=== PATIENT | female | born 1970 | race African-American/Black ===

== ENCOUNTER 2017-05-19 14:59 | Emergency (ER) | payer OTHER ==
[~2017-05-19] VITALS: Ht 167.6 cm; Wt 99.8 kg
[~2017-05-19 14:59] MED LIST: NORCO 5-325 TA1 EACH PO; POTASSIUM20 PO; [UNRECOGNIZED DRUG - REMARK]
[2017-05-19] MEDS ORDERED: ULTRAM 50MG TAB50 MG PO (16:28)
[2017-05-19] MEDS ORDERED: CYCLOBENZAPRINE5 MG PO (16:38)
[2017-05-19 17:05] VITALS: BP 178/80
== END 2017-05-19 17:06 | disposition home or self-care (01) ==
LOC: ER 14:59
DX: S86.811A Strain of other muscle(s) and tendon(s) at lower leg level, right leg, initial encounter (principal); W00.0XXA Fall on same level due to ice and snow, initial encounter; Y93.89 Activity, other specified; Y92.89 Other specified places as the place of occurrence of the external cause; Y99.8 Other external cause status